=== PATIENT | female | born 1950 | race African-American/Black ===

== ENCOUNTER → 2017-08-02 | Outpatient (CLI) | payer MEDICARE, MEDICAID ==
[~2017-08-02] MED LIST: AMLO10TA80 PO; AMLO5TAB88 PO; ASPI-1158 PO; ASPI-1159 PO; ATOR10TA PO; CLOP75TA33 PO; DOCU-150 PO; Docusate Sodium PO; ESOM20CA PO; FLUT16SP15 NS; FURO20TA4 PO; LISI-186 PO; LORA10TA7 PO; METO-385 PO; METO50TA5 PO; POTA8TAB8 PO; TRAM50TA73 PO; WHEAT DEXTRIN PO
== END | disposition home or self-care (01) ==
LOC: US 09:52
PROVIDERS: ATTEND Internal Medicine Gastroenterology
DX: K21.9 Gastro-esophageal reflux disease without esophagitis (principal); I10 Essential (primary) hypertension; K76.0 Fatty (change of) liver, not elsewhere classified
CPT/HCPCS: 76700